=== PATIENT | male | born 1985 ===

== ENCOUNTER 2018-10-06 12:29 | Emergency (ER) | payer OTHER ==
[2018-10-06 13:05] VITALS: O2SAT 100
[2018-10-06] MEDS ORDERED: Tdap Vaccine 0.5 ml Vial (10-64 yrs) IM ONE ×2 (14:55→15:26)
--- NOTE | 2018-10-06 15:06 | ED PDOC ---
Upper Extremity Pain/Injury Time Seen by Provider: 10/06/18 14:19 Chief Complaint (Nursing): Upper Extremity Problem/Injury Chief Complaint (Provider): Wound Check Left Hand History Per: Patient History/Exam Limitations: no limitations Onset/Duration Of Symptoms: Days (x4) Current Symptoms Are (Timing): Still Present Additional Complaint(s): 33 year old male presents to the ED for a wound check. 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 He presents today because his company told him he needs to file a report. Otherwise, he offers no complaints. James fever, pain at wound site, drainage from wound site. Tetanus not up to date Right hand dominant Past Medical History Reviewed: Historical Data, Nursing Documentation, Vital Signs Vital Signs: Last Vital Signs Temp 98.4 F 10/06/18 13:04 Pulse 63 10/06/18 13:04 Resp 16 10/06/18 13:04 BP 120/71 10/06/18 13:04 Pulse Ox 100 10/06/18 13:04 Primary Care Provider: FAMILY PROVIDER,NO - Medical History PMH: No Chronic Diseases - Surgical History Surgical History: No Surg Hx - Family History Family History: States: Unknown Family Hx - Immunization History Hx Tetanus Toxoid Vaccination: No (will update this visit) - Home Medications Home Medications: Ambulatory Orders Medication Instructions Recorded Bacitracin Ointment [Bacitracin] 1 applic TOP BID #1 tube 10/06/18 - Allergies Allergies/Adverse Reactions: Allergies Allergy/AdvReac Type Severity Reaction Status Date / Time No Known Allergies Allergy Verified 10/06/18 13:04 Review of Systems ROS Statement: Except As Marked, All Systems Reviewed And Found Negative Skin: Positive for: Other (cut to tip of left third digit) Physical Exam - Reviewed Nursing Documentation Reviewed: Yes Vital Signs Reviewed: Yes - Physical Exam Comments: GENERAL APPEARANCE: Patient is awake, alert, oriented x 3, in no acute distress. Resting comfortably. SKIN: Warm, dry; (-) cyanosis. NECK: Supple, FROM ENT: Mucus membranes moist. Airway patent, (-) stridor. CHEST AND RESPIRATORY: lungs clear to auscultation bilaterally; breath sounds eqaul, respirations even and non-labored. HEART AND CARDIOVASCULAR: RRR, (-) irregularity LEFT UPPER EXTREMITY: (+) 2mm x 2mm skin avulsion involving distal aspect of nail to distal surface of left third digit which is scabbed, (-) active bleeding, (-) erythema, (-) ecchymosis, (-) drainage (-) crusting (-) tenderness (-) subungual hematoma. Full ROM actively to all digits. Sensation and capillary refill intact. Remainder of hand, wrist, and upper extremity nontender with FROM. NEURO AND PSYCH: Mental status as above. Gait: steady. Speech: clear. (-) facial asymmetry. Normal cognition. - ECG O2 Sat by Pulse Oximetry: 100 (RA) Pulse Ox Interpretation: Normal Medical Decision Making Medical Decision Making: Initial Impression: visit for wound check, skin avulsion of finger Time: 1455 Initial Plan: --Tetanus booster IM --Patient educated on wound care. On re-evaluation, patient reports improvement of symptoms. On exam, patient r emains AAOx3, in no acute distress. Vitals stable. Lab/Diagnostic results d/w the patient in great detail. Diagnosis of skin avulsion of finger, wound check d/w the patient. Based on history, exam and diagnostic results, plan will be for outpatient follow up with clinic/hand. Patient instructed to follow-up with pmd / referral provided / the clinic in 1- 2 days without fail. Advised to take medication as prescribed. Return to the emergency room at any time for any new or worsening symptoms. Patient states he fully agrees with and understands discharge instructions. States that he agrees with the plan and disposition. Verbalized and repeated discharge instructions and plan. I have given the patient opportunity to ask any additional questions. Scribe Attestation: Documented by Charlee Quevedo, acting as a scribe for Jeniffer Betaty PA-C. Provider Scribe Attestation: All medical record entries made by the Scribe were at my direction and personally dictated by me. I have reviewed the chart and agree that the record accurately reflects my personal performance of the history, physical exam, medical decision making, and the department course for this patient. I have also personally directed, reviewed, and agree with the discharge instructions and disposition. Disposition - Clinical Impression Clinical Impression: Avulsion, skin, Finger injury, Visit for wound check - Patient ED Disposition Is Patient to be Admitted: No Counseled Patient/Family Regarding: Studies Performed, Diagnosis, Need For Followup, Rx Given - Disposition Referrals: [facility] [Outside] Jaime Goldberg MD [Medical Doctor] - Disposition: Routine/Home Disposition Time: 15:40 Condition: STABLE Additional Instructions: La atencin mdica de emergencia que recibi hoy se dirigi a holly sntomas agudos. Si le recetaron algn medicamento, llnelo y tmelo segn las indicaciones. Los sntomas pueden tardar varios warren en resolverse. Regrese al Departamento de Emergencias si holly sntomas empeoran, no mejoran o si tiene otros problemas. Comunquese con singh mdico dentro de 2 warren para jose nueva evaluacin y bonita un seguimiento o llame a adnis de los mdicos / clnicas a los que alamo sido referido y que figuran en el formulario de Informacin de visita al paciente que se incluye en singh paquete de joe. Lleve todos los documentos que recibi al momento del joe junto con los medicamentos que est tomando para singh visita de seguimiento. Nuestro tratamiento no puede reemplazar la atencin mdica continua por parte de un proveedor de atencin primaria (PCP) fuera del departamento de emergencias. Prescriptions: Bacitracin Ointment [Bacitracin] 1 applic TOP BID #1 tube Instructions: Wound Care, Common Finger Injuries (DC) Forms: [employer] ([place] Islander) Print Language: CROATIAN - POA Present On Arrival: None
[2018-10-06 16:05] VITALS: BP 114/70; PULSE 71; RESP 18; TEMP 98
== END 2018-10-06 16:04 | disposition home or self-care (01) ==
LOC: H.ER 12:29
DX: Z48.00 Encounter for change or removal of nonsurgical wound dressing (principal); Z23 Encounter for immunization